=== PATIENT | male | born 1955 | race Caucasian/White ===

== ENCOUNTER 2016-12-08 14:40 | Inpatient (IN) | payer OTHER ==
[~2016-12-08] VITALS: Ht 175.3 cm; Wt 77.1 kg
[2016-12-08 14:45] VITALS: BP 126/84
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
[2016-12-08] MEDS ORDERED: COLACE100 M1 PO (15:27)
[2016-12-08] MEDS ORDERED: ZOLOFT25 MG PO (15:27)
[2016-12-08] MEDS ORDERED: NORCO 325 MG-7.1 TAB PO (15:27)
[2016-12-08] MEDS ORDERED: MORPHINE SULFATE 4 MG/ML SYR IVP ONE ×2 (15:30→18:45)
--- NOTE | 2016-12-08 15:39 | NUR ---
DR. PERLA AT BEDSIDE
[2016-12-08] MEDS ORDERED: VISTARIL25 M1 PO (15:43)
[2016-12-08] MEDS ORDERED: MULTIVITAMIN1 SGL PO (15:43)
--- NOTE | 2016-12-08 15:47 | NUR ---
DR PERLA AT BEDSIDE
--- NOTE | 2016-12-08 15:49 | NUR ---
OFFERED WATER AND JUICE
--- NOTE | 2016-12-08 16:32 | NUR ---
PT SLEEPING AT THIS TIME NO SOB
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
--- NOTE | 2016-12-08 16:48 | NUR ---
PT HUNGRY JELLO AND ORANGE JUICE GIVEN
--- NOTE | 2016-12-08 17:20 | NUR ---
PT TO CT VIA CELIO, PT AAO, NO DISTRESS, NO SOB NOTED.
--- NOTE | 2016-12-08 17:28 | NUR ---
PT BACK FROM CT SCAN. NO ACUTE DISTRESS NOTED AT THIS TIME.WILL CONTINUE TO MONITOR PT.
--- NOTE | 2016-12-08 17:42 | NUR ---
DINNER SERVED TO PT.PT IS GRATEFUL
--- NOTE | 2016-12-08 17:55 | NUR ---
DR PERLA AT BEDSIDE
[2016-12-08] MEDS ORDERED: ONDANSETRON 4 MG/2 ML VIAL IVP PRN (18:30)
--- NOTE | 2016-12-08 18:43 | NUR ---
GAVE REPORT TO CRISTÓBAL VERNON.
--- NOTE | 2016-12-08 18:44 | NUR ---
RN SAULO SAID ER NEEDS TO START ANTIBIOTIC BEFORE TAKING PT TO [facility].CAHRGED NURSE WINNIE NOTIFIED.
[2016-12-08] MEDS ORDERED: PIPERACILLIN/TAZOBACTAM 3.375 GM in DEXTROSE 5% 50 ML IV ONE (18:45)
[2016-12-08] MEDS ORDERED: PIPERACILLIN/TAZOBACTAM 3.375 GM VIAL IV ONE (18:59)
--- NOTE | 2016-12-08 19:15 | NUR ---
PT AWARE NEED TO COLLECT SPUTUM, NO SPUTUM NOTED AT THIS TIME, SPECIMEN BOTTLE AT BEDSIDE
--- NOTE | 2016-12-08 19:19 | NUR ---
REPORT GIVEN TO DESHAWN
[2016-12-08 20:00] VITALS: BP 135/93
[2016-12-08] MEDS ORDERED: PIPER/TAZO 3.375GM/D5W PREMIX 50 ML IV SCH (20:00)
--- NOTE | 2016-12-08 20:00 | NUR ---
RECEIVED FROM ER PER CELIO AWAKE AND ALERT. NO SOB. DENIES PAIN AT THIS TIME. DX. OF PNA. CARE PLANS DISCUSSED WITH PT. AND CALL LIGHT ORIENTED TO PT. RAPID RESPONSE EXPLAINED TO PT. PT. UPSET WHY HE IS HERE. REFUSED TO AVE BODY CHECK"BULSHIT , I AM NOT GONNA LET YOU CHECK ME AGAIN. NO" ORIENTED X 4. CLEAR SPEECH.
--- NOTE | 2016-12-08 20:00 | NUR ---
Pt report given to CRISTÓBAL VERNON. Transfer of care at this time.
[2016-12-08] MEDS ORDERED: PIPERACILLIN/TAZOBACTAM 3.375 GM in DEXTROSE 5% 50 ML IV SCH (21:00)
--- NOTE | 2016-12-08 22:00 | NUR ---
AWAKE STILL AND PROVIDED WITH DINNER. MUCH BETTER ATTITUDE. SMILING. STILL REFUSED TO BE BODY CHECKED. PT. STATES NO MORE BODY CHECK. WATCHING TV. ORIENTED TO CABLE USE AND CALL LIGHT USE. TELEMETRY MONTORING.
[2016-12-08] MEDS: hydrOXYzine PAMOATE 25 MG CAP PO SCH (22:27)
[2016-12-08] MEDS: DOCUSATE SODIUM 100 MG GELCAP PO SCH (22:28)
[2016-12-08] MEDS: HYDROcodone/APAP 5/325 MG 1 TAB TAB PO PRN (22:30)
--- NOTE | 2016-12-09 | NUR ---
SLEEPING. NO RESTLESSNESS. CALL LIGHT WITH IN REACH.
[2016-12-09 00:36] VITALS: BP 130/89
--- NOTE | 2016-12-09 02:26 | NUR ---
SLEEPING AT THIS TIME. NO SOB. NO RESTLESSNESS NOTED.
--- NOTE | 2016-12-09 04:00 | NUR ---
SLEEPING. NO SOB. NO RESTLESSNESS. ON 02 AT 2LPM/NC. WITH BREATHING TREATMENTS.
[2016-12-09 04:40] VITALS: BP 133/82
[2016-12-09] MEDS: PIPER/TAZO 3.375GM/D5W PREMIX 50 ML IV SCH ×3 (06:38→20:29)
[2016-12-09] MEDS ORDERED: PIPERACILLIN/TAZOBACTAM 3.375 GM VIAL IV ONE (06:38)
[2016-12-09] MEDS: ALBUTEROL 0.083% 2.5 MG/3 ML NEBU IH PRN ×2 (07:25→14:00)
--- NOTE | 2016-12-09 07:35 | NUR ---
ENDORSED TO THE NEXT RN FOR CONTINUITY OF CARE. AWAKE AND ALERT. VERBALIZING WELL. DENIES PAIN AT THIS TIME.
--- NOTE | 2016-12-09 07:50 | NUR ---
PATIENT IS AWAKE, ALERT, AND ORIENTED X4. IV ON THE RIGHT HAND AND LEFT FOREARM INTACT AND PATENT. FLUSHING WELL. INITIAL ASSESSMENT DONE. ON 2L O2 VIA NASAL CANNULA. NO SOB OR OTHER DISTRESS. AMBULATE WITH ASSISTANCE. VITALS TAKEN AND WITHIN THE NORMAL LIMIT. DENIED ANY PAIN AT THIS TIME. SAFETY MEASURE CHECKED AND WILL CONTINUE TO MONITOR. CALL LIGHT WITHIN REACH.
[2016-12-09 08:00] VITALS: BP 114/71
--- NOTE | 2016-12-09 08:19 | NUR ---
PATIENT HAS BEEN SCREENED AND CATEGORIZED MODERATE NUTRITION RISK. PATIENT WILL BE SEEN WITHIN 3-5 DAYS OF ADMISSION. 12/11/16-12/13/[address]
--- NOTE | 2016-12-09 09:00 | NUR ---
DUE MEDS GIVEN, PATIENT TOLERATED WELL. WILL CONTINUE TO MONITOR.
[2016-12-09] MEDS: SERTRALINE 50 MG TAB PO SCH (09:39)
--- NOTE | 2016-12-09 09:39 | NUR ---
CM NOTE INITIAL REVIEW FAXED TO [facility] / FAX# [phone], ATTN: JUNITO #[phone]
[2016-12-09] MEDS: DOCUSATE SODIUM 100 MG GELCAP PO SCH ×2 (09:40→20:30)
[2016-12-09] MEDS: hydrOXYzine PAMOATE 25 MG CAP PO SCH ×2 (09:40→20:30)
[2016-12-09] MEDS: ENOXAPARIN 40 MG/0.4 ML SYR SUBQ SCH (09:42)
--- NOTE | 2016-12-09 10:00 | NUR ---
PATIENT IS ASLEEP IN BED. NO S/S OF DISTRESS. CALL LIGHT WITHIN REACH.
--- NOTE | 2016-12-09 11:40 | NUR ---
VITALS TAKEN AND WITHIN THE NORMAL LIMIT. DENIED ANY PAIN AT THIS TIME. CALL LIGHT WITHIN REACH.
[2016-12-09 11:57] VITALS: BP 124/72
--- NOTE | 2016-12-09 13:00 | NUR ---
ZOSYN STARTED INFUSING. WILL CONTINUE TO MONITOR. NO S/S OD DISTRESS OR PAIN. CALL LIGHT WITHIN REACH.
--- NOTE | 2016-12-09 14:02 | NUR ---
AWAKE AND ALERT RESPONSIVE TO BANDER AND CELLOPHANER MACHINE VERBAL COMMANDS PULMONARY ASSESSMENT DONE REVIEWED CHEST CT SCAN DATED 12/08/2016 [facility] PRN THERAPY GIVEN AT THIS TIME
--- NOTE | 2016-12-09 15:00 | NUR ---
PATIENT COMPLAINED OF PAIN AND OFFERED TO GIVE NORCO BUT PATIENT REFUSED. WANTED MORPHINE BUT EXPLAINED TO PATIENT THAT MD ALREADY DISCONTINUE THE MORPHINE. PATIENT STATE " NO I DON'T WANT THE NORCO". WILL CONTINUE TO MONITOR.
[2016-12-09 16:00] VITALS: BP 117/70
--- NOTE | 2016-12-09 16:00 | NUR ---
PATIENT IS ASLEEP NO S/S OF DISTRESS OR PAIN. CALL LIGHT WITHIN REACH.
--- NOTE | 2016-12-09 19:20 | NUR ---
REPORT GIVEN TO PROGRAMMING INTERN NIGHT AT BEDSIDE. PATIENT IS IN STABLE CONDITION AND ALL NEED MET AT THIS TIME.
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
[2016-12-09 20:00] VITALS: BP 119/73
--- NOTE | 2016-12-09 21:00 | NUR ---
PT IS TRANSFER TO BED 119A ON STABLE CONDITION SR ON TELMETRY
[2016-12-09] MEDS: HYDROcodone/APAP 5/325 MG 1 TAB TAB PO PRN (22:39)
--- NOTE | 2016-12-09 22:49 | NUR ---
PT CALL FOR PAIN AND NORCO IS THE PAIN MEDIC ORDER AT THE TIME TO TAKE IT HE REFUSED AND VERBALIZED THAT THIS MEDIC DOES NOT WORK THAT HE IS NOT TAKEN NORCO THEN; MEDIC IS WASTED FLAVIO RN NURSE IS THE WITNESS
[2016-12-10] VITALS: BP 121/74
[2016-12-10 04:00] VITALS: BP 125/76
--- NOTE | 2016-12-10 04:00 | NUR ---
PT HAS BEEN MONITORING CLOSE NOTDISTRESS NOTED ON TELE SR
[2016-12-10] MEDS: PIPER/TAZO 3.375GM/D5W PREMIX 50 ML IV SCH ×2 (05:21→12:39)
--- NOTE | 2016-12-10 06:30 | NUR ---
PT COOPERATIVE DENNIES ANY PAIN ON TELE SR
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
[2016-12-10 08:00] VITALS: BP 138/81
[2016-12-10] MEDS: SERTRALINE 50 MG TAB PO SCH (08:30)
[2016-12-10] MEDS: hydrOXYzine PAMOATE 25 MG CAP PO SCH (08:30)
[2016-12-10] MEDS: DOCUSATE SODIUM 100 MG GELCAP PO SCH (08:30)
[2016-12-10] MEDS: ENOXAPARIN 40 MG/0.4 ML SYR SUBQ SCH (08:33)
--- NOTE | 2016-12-10 08:33 | NUR ---
MORNING DUE MEDICATIONS AND TEACHING GIVEN, PATIENT TOLERATED WELL AND VERBALIZED UNDERSTANDING. NO SIGN OF DISTRESS NOTED. PATIENT AWAKE AND RESTING WELL IN BED WATCHING TV. CALL LIGHT WITHIN REACH. WILL CONTINUE TO MONITOR.
[2016-12-10 11:58] VITALS: BP 145/81
[2016-12-10] MEDS ORDERED: MUPIROCIN 2% OINT 22 GM TUBE TP SCH (13:00)
--- NOTE | 2016-12-10 13:44 | NUR ---
Social Service Note: I faxed patient's medical information to [facility] . Per Johan from [facility], patient may return to room 9B after 4pm today.
--- NOTE | 2016-12-10 13:53 | NUR ---
1350 CALL PLACED TO JUNITO DESOUZA AT [facility] TO PROVIDE CLINICAL INFORMATION AND THAT PT HAS ORDER [place] [facility] TH[place]APY SERVICES. REQUESTING AUTHORIZATION FOR W/C TRANSPORT. JUNITO PHONE [phone]. INFORMATION FAXED TO [phone]
--- NOTE | 2016-12-10 14:38 | NUR ---
REPORT GIVEN TO ALCIDES AMBROCIO OVER [facility]. LEFT MESSAGE TO FAMILY MEMBER REGARD PATIENT TRANSFER TO [facility].
--- NOTE | 2016-12-10 15:16 | NUR ---
PER JUNITO AT [facility] AUTH FOR [facility] IS [id number] [facility] IS [phone]. 1515 SPOKE WITH MICHEAL [place] [facility]FORMED HER THAT ORDER HAS BEEN SENT FROM DR MELGAR SCREENPLAY WRITER THAT PT IS NEGATIVE FOR TB PER CT SCAN AND PT IS ASYMPTOMATIC. PT CAN TRANSFER TODAY. MICHEAL SAID OKAY TO TRANSFER.
--- NOTE | 2016-12-10 15:29 | NUR ---
CALLED [facility] AND SET UP APPOINTMENT FOR PATIENT'S TRANSPORTATION. PATIENT WILL BE ON WHEELCHAIR TO [facility] AT 1830.
[2016-12-10 16:00] VITALS: BP 137/84
--- NOTE | 2016-12-10 18:00 | NUR ---
ALL DISCHARGE PAPERS SIGNED BY PATIENT. ALL DISCHARGE INSTRUCTION AND FOLLOW UP WITH PCP WITHIN 1 WEEK OF DISCHARGE INSTRUCTIONS GIVEN, PATIENT VERBALIZE UNDERSTANDING. ALL BELONGINGS WITH PATIENT.
--- NOTE | 2016-12-10 19:20 | NUR ---
ENDORSED PATIENT CURRENT PLAN OF CARE TO NIGHT NURSE EFRAÍN AMBROCIO. PATIENT RESTING WELL IN BED. NO SIGN OF DISTRESS NOTED.
--- NOTE | 2016-12-10 19:30 | NUR ---
RECEIVED PT FROM AMOL AMBROCIO PT IS AAOX4 ON TELEMETRY SR PT IS READY FOR DISCHARGED ALL PAPER WORK FOR DISCHARGE GIVEN TOTJULIA PT, WAITING FOR AGENT TO PICK HIM UP
--- NOTE | 2016-12-10 19:50 | NUR ---
IV SITE IS REMOVED AND ID BAND AND TELE BOX IS REMOVED AGENT FROM [facility] JEWEL BLOCKER AND SAWYER THE PT ON A WHEELCHAIR PT GOING [facility] ON STABLE CONDITION VSS.
== END 2016-12-10 19:50 | disposition home or self-care (01) | DRG 139 ==
LOC: MED 14:52 → MTU 18:34
PROVIDERS: ADMIT Hospitalist; ATTEND Hospitalist
DX: J18.9 Pneumonia, unspecified organism (principal); Z87.01 Personal history of pneumonia (recurrent); Z87.891 Personal history of nicotine dependence; Z91.09 Other allergy status, other than to drugs and biological substances; Z87.828 Personal history of other (healed) physical injury and trauma